=== PATIENT | male | born 1965 | race Caucasian/White ===

== ENCOUNTER 2023-07-04 06:12 | Day surgery (SDC) | payer OTHER ==
[2023-06-20 14:22] VITALS: BMI 32.5
[2023-07-04 06:41] VITALS: RESP 18
[2023-07-04] MEDS ORDERED: MIDAZOLAM HCL 2 MG/2 ML SINGLE DOSE VIAL ONE (07:12)
[2023-07-04] MEDS ORDERED: LIDOCAINE HCL/PF 2% SDV 5ML VIAL ONE (07:12)
[2023-07-04] MEDS ORDERED: PROPOFOL 60 ML ONE (07:12)
[2023-07-04] MEDS ORDERED: LIDOCAINE HCL 2% (20ML MULTI-DOSE VIAL) ONE (07:18)
[2023-07-04] MEDS ORDERED: DEXAMETHASONE SOD PHOSPHATE 4 MG/1 ML VIAL ONE (07:42)
[2023-07-04] MEDS ORDERED: ONDANSETRON 4 MG/2 ML VIAL ONE (07:42)
[2023-07-04] MEDS ORDERED: KETOROLAC TROMETHAMINE 30 MG/1 ML VIAL ONE (07:42)
[2023-07-04] MEDS: LIDOCAINE HCL 2% (50ML VIAL) NR ONE (07:44)
[2023-07-04 09:12] VITALS: PULSE 54; TEMP 97.3
[2023-07-04 09:15] VITALS: BP 123/69
== END 2023-07-04 08:45 | disposition home or self-care (01) ==
LOC: FASU 06:12
PROVIDERS: ATTEND Orthopaedic Surgery Hand Surgery
PROC: 01N50ZZ Release Median Nerve, Open Approach (ICD-10-PCS; principal; 2023-07-04 07:53)
DX: G56.01 Carpal tunnel syndrome, right upper limb (principal)